=== PATIENT | female | born 1965 | race Caucasian/White ===

== ENCOUNTER → 2018-05-06 | Outpatient (CLI) | payer OTHER | LOC: BMCIMAGING 09:09 | PROVIDERS: ATTEND Physician Assistant | DX: M25.861 Other specified joint disorders, right knee (principal); M17.12 Unilateral primary osteoarthritis, left knee ==

== ENCOUNTER → 2018-08-13 | Outpatient (CLI) | payer OTHER | LOC: BMCIMAGING 09:39 | PROVIDERS: ATTEND Podiatrist Foot & Ankle Surgery | DX: M24.871 Other specific joint derangements of right ankle, not elsewhere classified (principal) ==